=== PATIENT | male | born 1930 | race African-American/Black ===

== ENCOUNTER → 2018-11-22 | Outpatient (CLI) | payer OTHER, MEDICARE, BC | LOC: OD 13:49 | PROVIDERS: ATTEND Internal Medicine | DX: M1A.9XX0 Chronic gout, unspecified, without tophus (tophi) (principal) | CPT/HCPCS: 36415; 84550 ==

== ENCOUNTER 2019-02-20 14:15 | Emergency (ER) | payer OTHER, MEDICARE, BC ==
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
[2019-02-20 16:42] VITALS: BP 218/77
== END 2019-02-20 16:43 | disposition home or self-care (01) ==
LOC: ER 14:15
DX: S06.0X9A Concussion with loss of consciousness of unspecified duration, initial encounter (principal); S00.83XA Contusion of other part of head, initial encounter; V49.9XXA Car occupant (driver) (passenger) injured in unspecified traffic accident, initial encounter; M47.9 Spondylosis, unspecified; I10 Essential (primary) hypertension; Z85.46 Personal history of malignant neoplasm of prostate; Z86.73 Personal history of transient ischemic attack (TIA), and cerebral infarction without residual deficits
CPT/HCPCS: 70450; 72125; 99283

== ENCOUNTER → 2019-04-03 | Outpatient (CLI) | payer MEDICARE, BC ==
[2019-04-03 15:29] LABS: ABSOLUTE EOSINOPHILS # (AUTO) 0.1 10^3/uL (0.0-0.6); ABSOLUTE LYMPHOCYTES (AUTO) 1.1 10^3/uL (0.5-4.7); ABSOLUTE MONOCYTES (AUTO) 0.5 10^3/uL (0.1-1.4); ABSOLUTE NEUT (AUTO) 3.8 10^3/uL (1.7-8.2); BASOPHILS % (AUTO) 0.4 % (0-2); EOSINOPHILS % (AUTO) 1.4 % (0-6); HEMATOCRIT 38.3 % (37.9-51.0); HEMOGLOBIN 12.3 g/dL (13.5-17.0); LYMPHOCYTES % (AUTO) 19.7 % (13-45); MEAN CORPUSCULAR HEMOGLOBIN 22.3 pg (27.0-33.4); MEAN CORPUSCULAR HGB CONC 32.2 g/dL (32.0-36.0); MEAN CORPUSCULAR VOLUME 69 fl (80-97); MONOCYTES % (AUTO) 8.9 % (3-13); PLATELET COUNT 273 10^3/uL (150-450); RED BLOOD COUNT 5.55 10^6/uL (4.35-5.55); RED CELL DISTRIBUTION WIDTH 14.9 % (11.5-14.0); SEGMENTED NEUTROPHILS % (AUTO) 69.6 % (42-78); TOTAL CELLS COUNTED % (AUTO) 100 %; WHITE BLOOD COUNT 5.4 10^3/uL (4.0-10.5)
[2019-04-03 16:15] LABS: ERYTHROCYTE SEDIMENTATION RATE 54 mm/hr (0-20)
== END ==
LOC: OD 14:17
PROVIDERS: ATTEND Physician Assistant
DX: M46.44 Discitis, unspecified, thoracic region (principal); M46.46 Discitis, unspecified, lumbar region
CPT/HCPCS: 36415; 85025; 85652; 86141

== ENCOUNTER → 2019-04-03 | Outpatient (CLI) | payer MEDICARE, BC | LOC: OD 13:34 | PROVIDERS: ATTEND Physician Assistant | DX: M54.5 Low back pain (principal) ==